=== PATIENT | female | born 1950 | race Caucasian/White ===

== ENCOUNTER 2017-10-15 08:57 | Inpatient (IN) | payer OTHER ==
[~2017-10-15] VITALS: Ht 154.9 cm; Wt 89.4 kg
[~2017-10-15 08:57] MED LIST: ASPI81EC19 PO; COZ50 PO; DOCU-246 PO; ENAL10TA21 PO; FENO54TA3 PO; GABA300C PO; GLU500 PO; HYDR12.516 PO; NITR100C7 PO; OMEP40EC1 PO
[2017-10-15 09:09] VITALS: BP 138/78
--- NOTE | 2017-10-15 09:13 | NUR ---
Patient ambulated to bed 2 with family. RN evaluating patient at bedside.
--- NOTE | 2017-10-15 09:25 | NUR ---
66 Y/O F BIB DAUGHTER W/ COMPLAINTS OF ABDOMINAL PAIN THAT STARTED AT 1 AM THIS MORNING. PT. STATES " IT STARTED HURTING A LOT THIS MORNING IT STARTS IN THE UPPER R PART OF MY ABDOMEN AND IT GOES TO MY BACK AND ALL OVER MY ABD". UPON PALPATION OF ABD THEIR WAS REBOUND TENDERNESS IN ALL QUADRANTS. PT. C/O OF VOMITING 4 TIMES SINCE PAIN STARTED BUT SAYS IT WAS LIKE SALIVA, AND C/O OF NAUSEA AT THIS TIME BUT DENIES DIAHRRHEA . PT. C/O 10/10 PAIN THAT RADIATES FROM UPPER R QUADRANT TO ALL OF ABD AND ALSO THE RIGHT SIDE OF BACK. PT. DENIES ANY FALLS. PT IS ALERT AND ORIENTED X 4. RR EVEN AND UNLABORED. LUNG SOUNDS CLEAR BILATERALLY. DR. AVITIA NOTIFIED. SAFETY PRECAUTIONS IMPLEMENTED. WILL CONTINUE TO MONITOR.
--- NOTE | 2017-10-15 09:45 | NUR ---
DR. AVITIA IN ROOM EVALUATING PT.
[2017-10-15] MEDS ORDERED: NACL 0.9% 1,000 ML IV SCH (09:49)
[2017-10-15] MEDS ORDERED: GLYCOPYRROLATE 0.2 MG/ML VIAL IV ONE (09:50)
[2017-10-15] MEDS ORDERED: ONDANSETRON 4 MG/2 ML VIAL IVP ONE (09:50)
[2017-10-15] MEDS ORDERED: FAMOTIDINE 20 MG/2 ML VIAL IVP ONE (09:50)
[2017-10-15] MEDS ORDERED: KETOROLAC 30 MG/ML VIAL IVP ONE (09:50)
[2017-10-15] MEDS ORDERED: MORPHINE SULFATE 2 MG/ML SYR IVP ONE (09:50)
[2017-10-15] MEDS ORDERED: MORPHINE SULFATE 4 MG/ML SYR ONE (10:12)
[2017-10-15 10:16] LABS: BASOPHILS # (AUTO) 0.1 K/uL (0.00-0.22); BASOPHILS % (AUTO) 0.6 % (0.0-2.0); EOSINOPHILS # (AUTO) 0.2 K/uL (0-0.4); EOSINOPHILS % (AUTO) 2.1 % (0.0-4.0); HEMATOCRIT 43.9 % (36-48); HEMOGLOBIN 14.8 g/dL (12.0-16.0); LYMPHOCYTES # (AUTO) 0.3 K/uL (2.5-16.5); LYMPHOCYTES % (AUTO) 3.9 % (20.5-51.1); MEAN CORPUSCULAR HEMOGLOBIN 30 pg (27-31); MEAN CORPUSCULAR HGB CONC 34 g/dL (33-37); MONOCYTES # (AUTO) 0.3 K/uL (0.8-1.0); NEUTROPHILS # (AUTO) 7.6 K/uL (1.8-7.7); NEUTROPHILS % (AUTO) 89.4 % (42.2-75.2); PLATELET COUNT (AUTO) 131 K/uL (140-450); RED BLOOD CELL COUNT(AUTO) 4.99 MIL/uL (4.20-5.40); RED CELL DISTRIBUTION WIDTH 14.3 % (11.6-13.7); WHITE BLOOD COUNT (AUTO) 8.6 K/uL (4.8-10.8)
[2017-10-15 10:21] LABS: APPEARANCE,URINE CLEAR (CLEAR); BILIRUBIN,URINE NEGATIVE (NEGATIVE); BLOOD, URINE TRACE-I (NEGATIVE); COLOR,URINE YELLOW (YELLOW); LEUKOCYTE ESTERASE ,URINE TRACE (NEGATIVE); NITRITE, URINE NEGATIVE (NEGATIVE); UGLUCOSE NEGATIVE (NEGATIVE)
[2017-10-15 10:23] LABS: ANION GAP 13.6 (8-16); CARBON DIOXIDE 24.5 mmol/L (21-32); CREATININE 0.8 mg/dL (0.6-1.3); POTASSIUM 4.1 mmol/L (3.5-5.1)
[2017-10-15 10:28] LABS: ALBUMIN 3.8 g/dL (3.4-5.0); TOTAL BILIRUBIN 0.5 mg/dL (0.0-1.0)
[2017-10-15 10:33] LABS: RBC,URINE 0-5 (RARE) /HPF (0-5)
--- NOTE | 2017-10-15 10:42 | NUR ---
PT. TAKEN TO CT , VIA GURNEY WITH CORRECTIONAL AGENCY DIRECTOR.
--- NOTE | 2017-10-15 10:52 | NUR ---
PT. BACK IN ROOM FROM [place]
[2017-10-15] MEDS: NACL 0.9% 1,000 ML IV SCH ×2 (12:08→21:59)
[2017-10-15] MEDS ORDERED: DOCUSATE SODIUM 100 MG GELCAP PO PRN (12:10)
[2017-10-15] MEDS ORDERED: ONDANSETRON 4 MG/2 ML VIAL IM/IVP PRN (12:10)
[2017-10-15] MEDS ORDERED: ACETAMINOPHEN 325 MG TAB PO PRN (12:10)
[2017-10-15] MEDS ORDERED: HYDROcodone/APAP 7.5/325 MG 1 TAB PO PRN (12:10)
--- NOTE | 2017-10-15 12:52 | NUR ---
Patient will be admitted to care of DR. GRUBBS. Admited to TELE FLOOR . Will go to room 106A. Belongings list completed. Report to YANN BRUNO .
[2017-10-15 13:00] VITALS: BP 153/84
--- NOTE | 2017-10-15 13:00 | NUR ---
RECEIVED PT ON UNIT VIA [employer]. PT IS AAOX4, AMBULATORY, HAS IV ON THE LEFT AC, PATENT, INTACT, FLUSHING WELL, NO S/S OF RESPIRATORY DISTRESS NOTED, SKIN IS INTACT, ORIENTED PT TO ROOM, DISCUSSED PLAN OF CARE WITH PT AND PT'S DAUGHTER, THEY BOTH VERBALIZED UNDERSTANDING, CALL LIGHT IS WITHIN REACH, WILL CONTINUE TO MONITOR.
[2017-10-15 13:16] LABS: CHOL/HDL RATIO 4.1 (1-4.5); MAGNESIUM 2.1 mg/dL (1.8-2.4); PHOSPHORUS 3.1 mg/dL (2.5-4.9); THYROID STIMULATING HORMONE 0.36 uIU/mL (0.34-3.74)
[2017-10-15] MEDS ORDERED: MORPHINE SULFATE 4 MG/ML SYR IVP PRN (13:45)
--- NOTE | 2017-10-15 13:45 | NUR ---
I LET DR. SEO PATIENT WAS COMPLAINING OF 8/10 PAIN LEVEL AND PT HAD JUST VOMITED. I LET DR. SEO KNOW I HAS JUST GIVEN THE PATIENT SOME ZOFRAN. I ASKED DR. SEO IF HE CAN ORDER PAIN MEDICATION IV FORM. PER DR. SEO HE WILL PUT IN AN ORDER FOR MORPHINE.
[2017-10-15] MEDS ORDERED: INSULIN LISPRO SLIDING SCALE 100 UNITS/ML VIAL SUBQ PRN (14:10)
[2017-10-15] MEDS ORDERED: DEXTROSE 50% 50 ML SYR IVP PRN (14:10)
--- NOTE | 2017-10-15 15:32 | NUR ---
PT IS SLEEPING IN BED AT THIS TIME, CALL LIGHT IS WITHIN REACH.
[2017-10-15] MEDS ORDERED: KETOROLAC 30 MG/ML VIAL IM PRN (15:45)
[2017-10-15 16:00] VITALS: BP 145/71
[2017-10-15] MEDS: BLOOD GLUCOSE MONITORING 1 DEV DEV FS SCH ×2 (16:50→21:27)
[2017-10-15] MEDS: GABAPENTIN 300 MG CAP PO SCH (16:53)
--- NOTE | 2017-10-15 18:20 | NUR ---
PATIENT'S DAUGHTER ASKED IF THE PATIENT WAS GOING TO BE HAVING SURGERY. I LET HER KNOW OF THIS MOMENT THERE WAS NO PLANS FOR SURGERY BUT SHE DID NEED TO REMAIN NPO. PT'S DAUGHTER VERBALIZED UNDERSTANDING.
--- NOTE | 2017-10-15 19:10 | NUR ---
ENDORSED PT TO SURGICAL SUPPLIES STERILIZER NURSE FOR CONTINUITY OF CARE. PT STABLE AT THIS TIME.
--- NOTE | 2017-10-15 19:11 | NUR ---
RECEIVED REPORT FROM DAY SHIFT NURSE. AAOX4. FAMILY AT BEDSIDE. NO C/O PAIN AT THIS TIME. IV TO LEFT AC #20G, NS AT AT 110ML/HR. DISCUSSED PLAN OF CARE, PT VERBALIZED UNDERSTANDING. SAFETY PRECAUTION IN PLACE. CALL LIGHT WITHIN REACH.
[2017-10-15 20:00] VITALS: BP 138/72
[2017-10-15] MEDS: metFORMIN 500 MG TAB PO SCH (21:13)
[2017-10-15] MEDS: DOCUSATE SODIUM 100 MG GELCAP PO SCH (21:13)
--- NOTE | 2017-10-15 21:15 | NUR ---
CLARIFIED DIET ORDER TO DR. GRANGER, NPO EXCEPT MEDS. DUE MEDS GIVEN. PT TOLERATED WELL.
--- NOTE | 2017-10-15 21:30 | NUR ---
BS CHECKED 116. NO INSULIN COVERAGE NEEDED. K PAD APPLIED TO LOWER BACK ORDERED FOR HERNIATED DISK.
[2017-10-16] VITALS: BP 119/56
--- NOTE | 2017-10-16 00:07 | NUR ---
PT IN LYING IN BED, AWAKE. NO C/O PAIN. NO RESP DISTRESS NOTED. CALL LIGHT WITHIN REACH.
--- NOTE | 2017-10-16 02:25 | NUR ---
PT SLEEPING BUT EASILY AROUSABLE. RESP EVEN AND UNLABORED. NO S/S OF PAIN OR DISCOMFORT. CALL LIGHT WITHIN REACH.
[2017-10-16 04:00] VITALS: BP 100/45
--- NOTE | 2017-10-16 04:30 | NUR ---
PT IN BED, AWAKE. NO C/O PAIN. NO RESP DISTRESS NOTED. V/S CHECKED BP 100/45. DR. GRANGER MADE AWARE, NO NEW ORDER.
--- NOTE | 2017-10-16 06:05 | NUR ---
BS CHECKED 84. NO C/O PAIN OR DISCOMFORT. CALL LIGHT WITHIN REACH.
[2017-10-16] MEDS: BLOOD GLUCOSE MONITORING 1 DEV DEV FS SCH ×4 (06:41→21:00)
[2017-10-16] MEDS: NACL 0.9% 1,000 ML IV SCH ×3 (07:05→22:21)
--- NOTE | 2017-10-16 07:05 | NUR ---
ENDORSED PT TO DAY SHIFT NURSE. PT IN STABLE CONDITION.
--- NOTE | 2017-10-16 07:10 | NUR ---
RECEIVED REPORT FROM DIESEL ENGINE MECHANIC APPRENTICE NURSE, PT IS SLEEPING IN BED BUT EASILY AWAKEN, PT IS AAOX4, AMBULATORY, HAS IV ON THE LEFT AC, PATENT, INTACT, FLUSHING WELL, NO S/S OF RESPIRATORY DISTRESS OR DISCOMFORT NOTED, SKIN IS INTACT, DISCUSSED PLAN OF CARE WITH PT, PT VERBALIZED UNDERSTANDING, PATIENT'S DAUGHTER IS AT BEDSIDE, CALL LIGHT IS WITHIN REACH, WILL CONTINUE TO MONITOR.
[2017-10-16 08:00] VITALS: BP 117/53
[2017-10-16 08:12] LABS: BASOPHILS % (AUTO) 0.4 % (0.0-2.0); EOSINOPHILS # (AUTO) 0.2 K/uL (0-0.4); EOSINOPHILS % (AUTO) 4.7 % (0.0-4.0); HEMATOCRIT 36.3 % (36-48); HEMOGLOBIN 12.1 g/dL (12.0-16.0); LYMPHOCYTES # (AUTO) 0.9 K/uL (2.5-16.5); LYMPHOCYTES % (AUTO) 26.5 % (20.5-51.1); MEAN CORPUSCULAR HEMOGLOBIN 29 pg (27-31); MEAN CORPUSCULAR HGB CONC 33 g/dL (33-37); MEAN CORPUSCULAR VOLUME 88.4 fL (80-94); MONOCYTES # (AUTO) 0.3 K/uL (0.8-1.0); MONOCYTES % (AUTO) 9.3 % (1.7-9.3); NEUTROPHILS # (AUTO) 2.1 K/uL (1.8-7.7); NEUTROPHILS % (AUTO) 59.1 % (42.2-75.2); PLATELET COUNT (AUTO) 117 K/uL (140-450); RED BLOOD CELL COUNT(AUTO) 4.11 MIL/uL (4.20-5.40); RED CELL DISTRIBUTION WIDTH 14.2 % (11.6-13.7); WHITE BLOOD COUNT (AUTO) 3.5 K/uL (4.8-10.8)
[2017-10-16] MEDS ORDERED: METHOCARBAMOL 500 MG TAB PO SCH (08:50)
[2017-10-16 08:55] LABS: ANION GAP 9.5 (8-16); CREATININE 0.7 mg/dL (0.6-1.3); POTASSIUM 3.5 mmol/L (3.5-5.1)
[2017-10-16] MEDS ORDERED: ENALAPRIL 10 MG TAB PO SCH (09:00)
[2017-10-16] MEDS ORDERED: HYDROCHLOROTHIAZIDE 12.5 MG PO SCH (09:00)
[2017-10-16] MEDS: metFORMIN 500 MG TAB PO SCH ×2 (09:00→20:23)
[2017-10-16] MEDS ORDERED: FENOFIBRATE 54 MG PO SCH (09:00)
[2017-10-16] MEDS ORDERED: NON-FORMULARY ITEM (Omeprazole* (Prilosec*) 40 MG) PO SCH (09:00)
[2017-10-16] MEDS ORDERED: METHOCARBAMOL 500 MG TAB PO PRN (09:05)
[2017-10-16] MEDS: ECOTRIN 81 MG TABEC PO SCH (09:33)
[2017-10-16] MEDS: DOCUSATE SODIUM 100 MG GELCAP PO SCH ×2 (09:34→20:23)
[2017-10-16] MEDS: LOSARTAN 50 MG TAB PO SCH (09:35)
[2017-10-16] MEDS: ATORVASTATIN 20 MG TAB PO SCH (09:36)
[2017-10-16] MEDS: GABAPENTIN 300 MG CAP PO SCH ×3 (09:37→17:35)
[2017-10-16] MEDS: PANTOPRAZOLE 40 MG TABEC PO SCH (09:38)
[2017-10-16] MEDS: FENOFIBRATE 48 MG TAB PO SCH (09:41)
[2017-10-16] MEDS: HYDROCHLOROTHIAZIDE 25 MG TAB PO SCH (09:42)
--- NOTE | 2017-10-16 09:50 | NUR ---
PT OFF UNIT TO HAVE X-RAY STUDY DONE. PT LEFT IN STABLE CONDITION.
--- NOTE | 2017-10-16 10:03 | NUR ---
PATIENT HAS BEEN SCREENED AND CATEGORIZED MODERATE NUTRITION RISK. PATIENT WILL BE SEEN WITHIN 3-5 DAYS OF ADMISSION. 10/18/17 - 10/20/17 TAPAN SMITH MBA, RD
--- NOTE | 2017-10-16 10:10 | NUR ---
PT RETURNED TO UNIT. PT STABLE, NO S/S OF RESPIRATORY DISTRESS OR DISCOMFORT NOTED. CALL LIGHT WITHIN REACH.
--- NOTE | 2017-10-16 11:45 | NUR ---
PT RESTING IN BED, CALL LIGHT WITHIN REACH, PATIENT DAUGHTER IS AT BEDSIDE.
[2017-10-16 12:00] VITALS: BP 130/66
[2017-10-16] MEDS ORDERED: CALCIUM CARBONATE 500 MG TAB PO SCH (13:45)
--- NOTE | 2017-10-16 14:00 | NUR ---
PT SLEEPING IN BED AT THIS TIME, CALL LIGHT WITHIN REACH.
[2017-10-16 16:00] VITALS: BP 102/60
--- NOTE | 2017-10-16 17:35 | NUR ---
PT RESTING IN BED WATCHING TV, PATIENT'S DAUGHTER IS AT BEDSIDE, CALL LIGHT WITHIN REACH.
--- NOTE | 2017-10-16 19:20 | NUR ---
ENDORSED PT TO FELLER OPERATOR NURSE FOR CONTINUITY OF CARE. PT STABLE AT THIS TIME.
--- NOTE | 2017-10-16 19:22 | NUR ---
RECEIVED FROM AM RN IN BED SITTING UP WITH FAMILY MEMBERS VISITING. CALL LIGHT WITH IN REACH. DENIES PAIN AT THIS TIME. CARE PLANS AND CALL LIGHT USE FOR HELP EXPLAINED. TELEMETRY MONITORING.
[2017-10-16 20:18] VITALS: BP 149/65
[2017-10-16] MEDS: KETOROLAC 30 MG/ML VIAL IVP PRN (20:23)
[2017-10-17 00:42] VITALS: BP 131/55
--- NOTE | 2017-10-17 00:53 | NUR ---
PT. WITH 1 WATCHER/DAUGHTER AT BEDSIDE TO STAY OVERNIGHT. NO COMPLAINTS DONE . TELEMETRY MONITORING. NO SOB. PT. SLEEPING WELL.
[2017-10-17 03:13] VITALS: BP 135/67
[2017-10-17] MEDS: KETOROLAC 30 MG/ML VIAL IVP PRN (03:18)
--- NOTE | 2017-10-17 03:53 | NUR ---
PT. WOKE UP AND WENT RESTROOM TO URINATE. DAUGHTER ASSISTED PT. COMPLAINED OF ABDOMINAL PAIN AND MEDICATED REQUESTED FOR PAIN RELIEVER/TORADOL IVP.
[2017-10-17] MEDS: BLOOD GLUCOSE MONITORING 1 DEV DEV FS SCH ×2 (05:30→12:04)
--- NOTE | 2017-10-17 05:54 | NUR ---
PT. AM PERSONAL HYGIENE RENDERED BY CNAS. NO COMPLAINTS DONE. ON TELEMETRY MONITORING. NO SOB OR PAIN COMPLAINTS DONE THIS SHIFT. ABLE TO VERBALIZE NEEDS WELL.
--- NOTE | 2017-10-17 07:40 | NUR ---
PATIENT IS AWAKE, ALERT. RESPIRATION EVEN, UNLABOR ON ROOM AIR. SKIN DRY AND WARM. IV PATENT AND INTACT. DENIED ABDOMINAL PAIN, N/V AT THIS TIME. NO DISTRESS NOTED. VS IS STABLE. FAMILY AT BEDSIDE. PLAN OF CARE WAS DISCUSSED WITH PATIENT AND FAMILY. BED AT LOW POSITION, SIDE RAILS UP. CALL LIGHT WITHIN REACH.
[2017-10-17 08:00] VITALS: BP 130/58
[2017-10-17] MEDS: ATORVASTATIN 20 MG TAB PO SCH (08:56)
[2017-10-17] MEDS: PANTOPRAZOLE 40 MG TABEC PO SCH (08:57)
[2017-10-17] MEDS: GABAPENTIN 300 MG CAP PO SCH ×2 (08:57→12:42)
[2017-10-17] MEDS: FENOFIBRATE 48 MG TAB PO SCH (08:57)
[2017-10-17] MEDS: ECOTRIN 81 MG TABEC PO SCH (08:57)
[2017-10-17] MEDS: HYDROCHLOROTHIAZIDE 25 MG TAB PO SCH (08:57)
[2017-10-17] MEDS: metFORMIN 500 MG TAB PO SCH (08:57)
[2017-10-17] MEDS: DOCUSATE SODIUM 100 MG GELCAP PO SCH (08:58)
[2017-10-17] MEDS: LOSARTAN 50 MG TAB PO SCH (08:58)
[2017-10-17] MEDS ORDERED: CALCIUM CARBONATE 500 MG TAB PO SCH (09:00)
--- NOTE | 2017-10-17 10:30 | NUR ---
PATIENT AMBULATED AROUND THE HALLWAY, ACCOMPANIED BY FAMILY. NO DISTRESS NOTED AT THIS TIME, STEADY GAIT
[2017-10-17] MEDS ORDERED: ONDA4TAB PO (11:49)
[2017-10-17 12:00] VITALS: BP 138/63
[2017-10-17] MEDS ORDERED: SODIUM PHOSPHATE 118 ML ENEM RC SCH (12:00)
--- NOTE | 2017-10-17 12:00 | NUR ---
PATIENT WAS UPDATED WITH NEW ORDERS. PATIENT STATED SHE WOULD LIKE TO EAT LUNCH FIRST AND TRIED TO GO BATHROOM AGAIN FOR BM BEFORE TRYING THE ENEMA. VS IS STABLE. WILL CONTINUE TO FOLLOW UP
--- NOTE | 2017-10-17 12:50 | NUR ---
ENEMA WAS GIVEN PER ORDER. PATIENT TOLERATED WELL. INSTRUCTED PATIENT TO CALL RN ONCE SHE HAS ANY BM
--- NOTE | 2017-10-17 14:06 | NUR ---
PATIENT HAD 2 LARGE BMS PER IT SOFTWARE DEVELOPER. OK TO DISCHARGE PER ORDER.
--- NOTE | 2017-10-17 14:34 | NUR ---
DISCHARGE INSTRUCTION WAS GIVEN AND EXPLAINED TO THE PATIENT AND FAMILY. PATIENT VERBALIZED UNDERSTANDING. IV WAS REMOVED, CATHETER INTACT, NO ACTIVE BLEEDING SEEN, PATIENT TOLERATED WELL. DENIED ABDOMINAL PAIN, N/V AT THIS TIME. ID BAND AND LABORATORY IMMUNOLOGIST WERE REMOVED. ALL BELONGINGS WERE TAKEN WITH PATIENT AND FAMILY. Addendum: 10/17/17 at 1443 by Shelia Cabrera RN PATIENT WAS ESCORTED OUT BY STAFF, MEHNAZ LOMELI
== END 2017-10-17 14:40 | disposition home or self-care (01) | DRG 444 ==
LOC: MED 08:57 → MTU 12:12
PROVIDERS: ADMIT Family Medicine; ATTEND Family Medicine
DX: K80.51 Calculus of bile duct without cholangitis or cholecystitis with obstruction (principal); N17.0 Acute kidney failure with tubular necrosis; K56.7 Ileus, unspecified; N39.0 Urinary tract infection, site not specified; K57.30 Diverticulosis of large intestine without perforation or abscess without bleeding; I10 Essential (primary) hypertension; E78.5 Hyperlipidemia, unspecified; E66.9 Obesity, unspecified; E86.0 Dehydration; M50.90 Cervical disc disorder, unspecified, unspecified cervical region; M51.26 Other intervertebral disc displacement, lumbar region; E11.65 Type 2 diabetes mellitus with hyperglycemia; E11.51 Type 2 diabetes mellitus with diabetic peripheral angiopathy without gangrene; Z68.37 Body mass index [BMI] 37.0-37.9, adult; Z88.2 Allergy status to sulfonamides; Z79.84 Long term (current) use of oral hypoglycemic drugs; Z79.82 Long term (current) use of aspirin; Z79.899 Other long term (current) drug therapy; Z90.710 Acquired absence of both cervix and uterus; Z98.891 History of uterine scar from previous surgery
CPT/HCPCS: 36415; 74018; 76705; 80048; 80053; 81001; 82150; 82948; 83036; 83690; 83735; 84100; 84436; 84439; 84443; 84479; 85025; 87081; 87086; 93925; 93970; 96361; 96374; 96375; 99285; J1815; J1885; J2270; J2405; J3490; J7030; Q0092

== ENCOUNTER 2018-03-11 12:40 | Emergency (ER) | payer OTHER ==
[~2018-03-11] VITALS: Ht 154.9 cm; Wt 90.7 kg
[~2018-03-11 12:40] MED LIST changes: +ONDA4TAB PO
[2018-03-11 13:00] VITALS: BP 135/72
[2018-03-11] MEDS ORDERED: NACL 0.9% 1,000 ML IV ONE (13:08)
[2018-03-11] MEDS ORDERED: PROMETHAZINE 25 MG/ML VIAL IM ONE (13:10)
[2018-03-11] MEDS ORDERED: IPRATROPIUM 0.02% 0.5 MG/2.5 ML NEBU INH ONE (13:10)
[2018-03-11] MEDS ORDERED: ALBUTEROL 0.083% 2.5 MG/3 ML NEBU INH ONE (13:10)
[2018-03-11] MEDS ORDERED: methylPREDNISolone SS 125 MG/2 ML VIAL IVP ONE (13:10)
[2018-03-11] MEDS ORDERED: ONDANSETRON 4 MG/2 ML VIAL IVP ONE (13:10)
[2018-03-11] MEDS ORDERED: diphenhydrAMINE 50 MG/ML VIAL IVP ONE (13:10)
[2018-03-11] MEDS ORDERED: FAMOTIDINE 20 MG/2 ML VIAL IVP ONE (13:10)
[2018-03-11] MEDS ORDERED: MIRA25TE PO (13:16)
[2018-03-11] MEDS ORDERED: ATOR10TA PO (13:16)
[2018-03-11] MEDS ORDERED: VITD1000 PO (13:16)
[2018-03-11] MEDS ORDERED: GLIP5TAB13 PO (13:16)
[2018-03-11] MEDS ORDERED: LINA145C PO (13:16)
[2018-03-11] MEDS ORDERED: ORE25 PO (13:17)
[2018-03-11 13:36] LABS: BASOPHILS # (AUTO) 0.1 K/uL (0.00-0.22); EOSINOPHILS # (AUTO) 0.1 K/uL (0-0.4); EOSINOPHILS % (AUTO) 1.6 % (0.0-4.0); LYMPHOCYTES # (AUTO) 1.3 K/uL (2.5-16.5); MEAN CORPUSCULAR HEMOGLOBIN 30 pg (27-31); MEAN CORPUSCULAR HGB CONC 34 g/dL (33-37); MEAN CORPUSCULAR VOLUME 86.8 fL (80-94); MONOCYTES # (AUTO) 0.3 K/uL (0.8-1.0); MONOCYTES % (AUTO) 5.3 % (1.7-9.3); NEUTROPHILS # (AUTO) 4.2 K/uL (1.8-7.7); NEUTROPHILS % (AUTO) 70.1 % (42.2-75.2); PLATELET COUNT (AUTO) 144 K/uL (140-450); RED BLOOD CELL COUNT(AUTO) 4.72 MIL/uL (4.20-5.40)
[2018-03-11 13:43] LABS: APPEARANCE,URINE CLEAR (CLEAR); BILIRUBIN,URINE NEGATIVE (NEGATIVE); BLOOD, URINE NEGATIVE (NEGATIVE); COLOR,URINE YELLOW (YELLOW); LEUKOCYTE ESTERASE ,URINE NEGATIVE (NEGATIVE); NITRITE, URINE NEGATIVE (NEGATIVE); PH,URINE 6.5 (5.0-9.0); UGLUCOSE NEGATIVE (NEGATIVE)
[2018-03-11 14:00] LABS: ANION GAP 11.4 (8-16); CARBON DIOXIDE 27.1 mmol/L (21-32); CREATININE 0.9 mg/dL (0.6-1.3); POTASSIUM 3.5 mmol/L (3.5-5.1)
[2018-03-11 14:04] LABS: PROTHROMBIN TIME 10.1 secs (10.8-13.4)
[2018-03-11 14:07] LABS: ALBUMIN 3.9 g/dL (3.4-5.0); TOTAL BILIRUBIN 0.6 mg/dL (0.0-1.0)
[2018-03-11] MEDS ORDERED: HYDROcodone/APAP 7.5/325 MG 1 TAB PO PRN (14:30)
[2018-03-11] MEDS ORDERED: NACL 0.9% 1,000 ML IV SCH (14:30)
[2018-03-11] MEDS ORDERED: ACETAMINOPHEN 325 MG TAB PO PRN (14:30)
[2018-03-11] MEDS ORDERED: ONDANSETRON 4 MG/2 ML VIAL IM/IVP PRN (14:30)
[2018-03-11] MEDS ORDERED: DOCUSATE SODIUM 100 MG GELCAP PO PRN (14:30)
[2018-03-11 15:03] LABS: BARBITURATE, URINE NEG. ng/ml (NEG <=200); BENZODIAZEPINE, URINE NEG. ng/mL (NEG <=200); CANNABINOID, URINE NEG. ng/mL (NEG <=50); COCAINE, URINE NEG. ng/mL (NEG <=300); OPIATE, URINE NEG. ng/mL (NEG <=2000); PHENCYCLIDINE SCREEN,URINE NEG. ng/mL (NEG <=25)
[2018-03-11 15:10] VITALS: BP 158/73
[2018-03-11 15:13] LABS: CHOL/HDL RATIO 3.9 (1-4.5); FREE T4 (FREE THYROXINE) 1.13 ng/dL (0.76-1.46); PHOSPHORUS 2.9 mg/dL (2.5-4.9); THYROID STIMULATING HORMONE 0.66 uIU/mL (0.34-3.74)
[2018-03-12 08:09] LABS: T4 (THYROXINE) 7.2 ug/dL (4.5-12.0)
== END 2018-03-11 15:09 | disposition left against medical advice (07) ==
LOC: MED 12:40
DX: T36.8X5A Adverse effect of other systemic antibiotics, initial encounter (principal); E11.9 Type 2 diabetes mellitus without complications; I10 Essential (primary) hypertension; Z88.1 Allergy status to other antibiotic agents; Z88.3 Allergy status to other anti-infective agents; Z88.2 Allergy status to sulfonamides; Z79.82 Long term (current) use of aspirin; Z79.899 Other long term (current) drug therapy; Y92.89 Other specified places as the place of occurrence of the external cause
CPT/HCPCS: 36415; 71045; 80053; 80061; 80305; 81003; 81025; 82150; 83036; 83690; 83735; 83880; 84100; 84436; 84439; 84443; 84479; 84484; 85025; 85610; 85730; 93005; 94640; 96374; 96375; 99285; J1200; J2405; J2550; J2930; J3490; J7030; J7613; J7644

== ENCOUNTER 2019-09-02 13:47 | Emergency (ER) | payer OTHER ==
[~2019-09-02] VITALS: Ht 154.9 cm; Wt 92.5 kg
[~2019-09-02 13:47] MED LIST changes: +ATOR10TA PO; -COZ50 PO; -DOCU-246 PO; -ENAL10TA21 PO; -FENO54TA3 PO; +GLIP5TAB13 PO; -GLU500 PO; -HYDR12.516 PO; +LINA145C PO; +LOSA50TA57 PO; +MIRA25TE PO; -NITR100C7 PO; -OMEP40EC1 PO; +ORE25 PO; +VITD1000 PO
[2019-09-02 13:48] VITALS: BP 181/93
[2019-09-02] MEDS ORDERED: KETOROLAC 60 MG/2 ML VIAL IM ONE (14:10)
[2019-09-02] MEDS ORDERED: MORPHINE SULFATE 4 MG/ML SYR IM ONE ×2 (14:10→15:50)
[2019-09-02 16:04] LABS: APPEARANCE,URINE CLEAR (CLEAR); BILIRUBIN,URINE NEGATIVE (NEGATIVE); BLOOD, URINE NEGATIVE (NEGATIVE); COLOR,URINE YELLOW (YELLOW); LEUKOCYTE ESTERASE ,URINE TRACE (NEGATIVE); NITRITE, URINE NEGATIVE (NEGATIVE); PH,URINE 6.5 (5.0-9.0); UGLUCOSE NEGATIVE (NEGATIVE)
[2019-09-02 16:49] VITALS: BP 120/63
[2019-09-02 16:52] LABS: RBC,URINE NONE SEEN /HPF (0-5); WBC,URINE 0-5 /HPF (0-5)
== END 2019-09-02 17:10 | disposition home or self-care (01) ==
LOC: MED 13:47
DX: M54.42 Lumbago with sciatica, left side (principal); M54.16 Radiculopathy, lumbar region; E11.9 Type 2 diabetes mellitus without complications; I10 Essential (primary) hypertension; Z88.1 Allergy status to other antibiotic agents; Z88.2 Allergy status to sulfonamides; Z90.710 Acquired absence of both cervix and uterus; Z79.899 Other long term (current) drug therapy
CPT/HCPCS: 81001; 96372; 99284; J1885; J2270

== ENCOUNTER 2020-12-22 19:59 | Emergency (ER) | payer OTHER ==
[~2020-12-22] VITALS: Ht 154.9 cm; Wt 92.5 kg
[~2020-12-22 19:59] MED LIST changes: +HYDR-4004 PO; -ORE25 PO
[2020-12-22 20:24] VITALS: BP 161/97
--- NOTE | 2020-12-22 20:29 | NUR ---
AMBULATED TO BED 12 WITH GUARDED GAIT
--- NOTE | 2020-12-22 20:30 | NUR ---
PT. IS A 70 Y/O FEMALE THAT CAME INTO ED WITH C/O OF BILATERAL LEG PAIN. PT. STATES THAT "IT HURTS MORE ON MY LEFT LEG AND FEELS LIKE BURNING." PT. ALSO STATES THAT IT STARTED ON TUESDAY AND PROGRESSED. FULL RANGE OF MOTION NOTED ON BILATERAL LOWER EXTREMITIES NOTED. PT. RATES HER PAIN AT A 8/10 ON THE PAIN SCALE. SKIN IS PINK/WARM/DRY; AAOX4 WITH EVEN AND STEADY GAIT;HR EVEN AND REGULAR; PT DENIES ANY FEVER, CP, SOB, OR COUGH AT THIS TIME; VSS; PATIENT POSITIONED FOR COMFORT; HOB ELEVATED; BEDRAILS UP X2; BED DOWN. ER MD MADE AWARE OF PT STATUS. PMH: HTN, DM 2 ALLERGIES: MACROBID, CIPRO, AND SULFA
--- NOTE | 2020-12-22 21:15 | NUR ---
FRANCISCO SOUSA AT BEDSIDE FOR EXAMINATION
--- NOTE | 2020-12-22 21:27 | NUR ---
PT. TAKEN TO RAD VIA W/C.
--- NOTE | 2020-12-22 21:37 | NUR ---
PT RETURN FROM RAD
--- NOTE | 2020-12-22 21:50 | NUR ---
ULTRASOUND AT BEDSIDE
--- NOTE | 2020-12-22 22:40 | NUR ---
PT. IS LAYING IN BED COMFORTABLY WITH DAUGHTER AT BEDSIDE. VOICES NO COMPLAINTS
[2020-12-22] MEDS ORDERED: LID5T TP (23:40)
[2020-12-22 23:51] VITALS: BP 142/63
--- NOTE | 2020-12-22 23:51 | NUR ---
Patient discharged with v/s stable. Written and verbal after care instructions given and explained. Patient alert, oriented and verbalized understanding of instructions. Ambulatory with steady gait. All questions addressed prior to discharge. ID band removed. Patient advised to follow up with PMD. Rx of LIDODERM 5% PATCH given. Patient educated on indication of medication including possible reaction and side effects. Opportunity to ask questions provided and answered.
== END 2020-12-22 23:51 | disposition home or self-care (01) ==
LOC: MED 19:59
DX: M54.42 Lumbago with sciatica, left side (principal); G89.29 Other chronic pain; E11.9 Type 2 diabetes mellitus without complications; I10 Essential (primary) hypertension; Z79.899 Other long term (current) drug therapy; Z79.82 Long term (current) use of aspirin; Z79.84 Long term (current) use of oral hypoglycemic drugs; Z88.1 Allergy status to other antibiotic agents; Z88.2 Allergy status to sulfonamides; Z88.8 Allergy status to other drugs, medicaments and biological substances
CPT/HCPCS: 72100; 93971; 99284

== ENCOUNTER 2023-02-28 15:07 | Emergency (ER) | payer OTHER ==
[~2023-02-28] VITALS: Ht 154.9 cm; Wt 95.3 kg
[~2023-02-28 15:07] MED LIST changes: +CHOL100084 PO; +LID5T TP; -VITD1000 PO
[2023-02-28 15:27] VITALS: BP 154/84; PULSE 69; RESP 18; TEMP 97.7; O2SAT 97
[2023-02-28] MEDS ORDERED: NACL 0.9% 1,000 ML IV ONE (16:15)
[2023-02-28] MEDS ORDERED: LIDOCAINE 5% 1 EA PATCH TP SCH (16:15)
[2023-02-28] MEDS ORDERED: ONDANSETRON 4 MG/2 ML VIAL IVP ONE (16:15)
[2023-02-28] MEDS ORDERED: MORPHINE SULFATE 2 MG/ML SYR IVP ONE (16:15)
[2023-02-28 16:25] LABS: BASOPHILS % (AUTO) 0.8 % (0.0-2.0); EOSINOPHILS # (AUTO) 0.2 K/uL (0-0.4); EOSINOPHILS % (AUTO) 4.5 % (0.0-4.0); HEMATOCRIT 42.5 % (36-48); HEMOGLOBIN 14.5 g/dL (12.0-16.0); LYMPHOCYTES % (AUTO) 25.6 % (20.5-51.1); MEAN CORPUSCULAR HEMOGLOBIN 29 pg (27-31); MEAN CORPUSCULAR HGB CONC 34 g/dL (33-37); MEAN CORPUSCULAR VOLUME 85.7 fL (80-94); MONOCYTES # (AUTO) 0.4 K/uL (0.8-1.0); NEUTROPHILS # (AUTO) 2.4 K/uL (1.8-7.7); NEUTROPHILS % (AUTO) 59.1 % (42.2-75.2); PLATELET COUNT (AUTO) 143 K/uL (140-450); RED BLOOD CELL COUNT(AUTO) 4.96 MIL/uL (4.20-5.40); RED CELL DISTRIBUTION WIDTH 14.5 % (11.6-13.7); WHITE BLOOD COUNT (AUTO) 4.1 K/uL (4.8-10.8)
[2023-02-28 16:49] LABS: ALANINE AMINOTRANSFERASE 29 U/L (12-78); ALBUMIN 3.7 g/dL (3.4-5.0); ALKALINE PHOSPHATASE 65 U/L (50-136); ANION GAP 15.6 (8-16); ASPARTATE AMINOTRANSFERASE 36 U/L (15-37); CARBON DIOXIDE 23.5 mmol/L (21-32); CHLORIDE 102 mmol/L (98-107); CREATININE 0.9 mg/dL (0.6-1.3); GLUCOSE 120 mg/dL (74-106); POTASSIUM 4.1 mmol/L (3.5-5.1); SODIUM SERUM 137 mmol/L (136-145); TOTAL BILIRUBIN 0.4 mg/dL (0.0-1.0); TOTAL PROTEIN, SERUM 7.4 g/dL (6.4-8.2); UREA NITROGEN, BLOOD 7 mg/dL (7-18)
[2023-02-28 17:17] VITALS: BP 183/69; PULSE 65; RESP 12
[2023-02-28 17:17] LABS: LIPASE 110 U/L (73-393)
[2023-02-28 18:14] VITALS: O2SAT 98
[2023-02-28 18:45] LABS: APPEARANCE,URINE CLEAR (CLEAR); BILIRUBIN,URINE NEGATIVE (NEGATIVE); BLOOD, URINE TRACE-I (NEGATIVE); COLOR,URINE YELLOW (YELLOW); LEUKOCYTE ESTERASE ,URINE NEGATIVE (NEGATIVE); NITRITE, URINE NEGATIVE (NEGATIVE); PROTEIN,URINE NEGATIVE (NEGATIVE); UGLUCOSE NEGATIVE (NEGATIVE); UROBILINOGEN,URINE 0.2 EU/dL (0.2 - 1)
[2023-02-28 18:57] LABS: BACTERIA,URINE FEW /HPF (None Seen); RBC,URINE 0-5 /HPF (0-5); SQUAMOUS EPITHELIAL CELL,UR 0-3 (FEW) /LPF (0-3 (FEW)); WBC,URINE 0-5 /HPF (0-5)
[2023-02-28] MEDS ORDERED: ACET-5636 PO ×2 (18:58→20:33)
[2023-02-28] MEDS ORDERED: NAPR-1704 PO ×2 (18:58→20:33)
[2023-02-28] MEDS ORDERED: EMLAC TP ×2 (19:00→20:33)
[2023-02-28] MEDS ORDERED: METH-1681 PO ×2 (19:02→20:33)
[2023-02-28] MEDS ORDERED: GUAI118L81 PO ×2 (19:02→20:33)
== END 2023-02-28 19:15 | disposition home or self-care (01) ==
LOC: MED 15:07
DX: S39.012A Strain of muscle, fascia and tendon of lower back, initial encounter (principal); E11.9 Type 2 diabetes mellitus without complications; I10 Essential (primary) hypertension; Z88.2 Allergy status to sulfonamides; Z88.8 Allergy status to other drugs, medicaments and biological substances; Z79.4 Long term (current) use of insulin; Z79.899 Other long term (current) drug therapy; X58.XXXA Exposure to other specified factors, initial encounter; Y93.89 Activity, other specified; Y92.89 Other specified places as the place of occurrence of the external cause; Y99.8 Other external cause status
CPT/HCPCS: 36415; 71045; 80053; 81001; 83690; 84484; 85025; 87086; 93005; 96361; 96374; 96375; 99285; J2270; J2405; J7030

== ENCOUNTER 2023-03-05 08:43 | Emergency (ER) | payer OTHER ==
[~2023-03-05] VITALS: Ht 154.9 cm; Wt 95.3 kg
[~2023-03-05 08:43] MED LIST changes: +ACET-5636 PO; +EMLAC TP; +GUAI118L81 PO; +METH-1681 PO; +NAPR-1704 PO
[2023-03-05 08:52] VITALS: BP 150/88; PULSE 67; RESP 15; TEMP 97.5; O2SAT 97
[2023-03-05 09:00] VITALS: O2SAT 97
[2023-03-05] MEDS ORDERED: MORPHINE SULFATE 4 MG/ML SYR IVP ONE (09:45)
[2023-03-05] MEDS ORDERED: ONDANSETRON 4 MG/2 ML VIAL IVP ONE (09:45)
[2023-03-05 10:59] LABS: BASOPHILS % (AUTO) 0.6 % (0.0-2.0); EOSINOPHILS # (AUTO) 0.3 K/uL (0-0.4); EOSINOPHILS % (AUTO) 4.9 % (0.0-4.0); HEMATOCRIT 40.2 % (36-48); HEMOGLOBIN 13.5 g/dL (12.0-16.0); LYMPHOCYTES # (AUTO) 1.3 K/uL (2.5-16.5); LYMPHOCYTES % (AUTO) 24.4 % (20.5-51.1); MEAN CORPUSCULAR HEMOGLOBIN 29 pg (27-31); MEAN CORPUSCULAR HGB CONC 34 g/dL (33-37); MEAN CORPUSCULAR VOLUME 86.2 fL (80-94); MONOCYTES # (AUTO) 0.5 K/uL (0.8-1.0); MONOCYTES % (AUTO) 8.8 % (1.7-9.3); NEUTROPHILS # (AUTO) 3.2 K/uL (1.8-7.7); NEUTROPHILS % (AUTO) 61.3 % (42.2-75.2); PLATELET COUNT (AUTO) 155 K/uL (140-450); RED BLOOD CELL COUNT(AUTO) 4.67 MIL/uL (4.20-5.40); RED CELL DISTRIBUTION WIDTH 14.6 % (11.6-13.7); WHITE BLOOD COUNT (AUTO) 5.3 K/uL (4.8-10.8)
[2023-03-05 11:17] LABS: ALANINE AMINOTRANSFERASE 45 U/L (12-78); ALBUMIN 3.8 g/dL (3.4-5.0); ALKALINE PHOSPHATASE 77 U/L (50-136); ANION GAP 11.3 (8-16); ASPARTATE AMINOTRANSFERASE 35 U/L (15-37); CALCIUM 9.1 mg/dL (8.5-10.1); CARBON DIOXIDE 25.5 mmol/L (21-32); CHLORIDE 105 mmol/L (98-107); CREATININE 0.8 mg/dL (0.6-1.3); GLUCOSE 135 mg/dL (74-106); POTASSIUM 4.8 mmol/L (3.5-5.1); SODIUM SERUM 137 mmol/L (136-145); TOTAL BILIRUBIN 0.6 mg/dL (0.0-1.0); TOTAL PROTEIN, SERUM 7.3 g/dL (6.4-8.2); UREA NITROGEN, BLOOD 10 mg/dL (7-18)
[2023-03-05] MEDS ORDERED: EMLAC TP ×2 (13:40→16:55)
[2023-03-05] MEDS ORDERED: HYDR-5191 PO (13:40)
[2023-03-05 13:46] LABS: INR 1.07 (0.8-1.2); PARTIAL THROMBOPLASTIN TIME 27.2 secs (22-35.6); PROTHROMBIN TIME 11.2 secs (10.8-13.4)
[2023-03-05 14:04] VITALS: BP 146/61; PULSE 63; RESP 10; TEMP 97.4; O2SAT 96
== END 2023-03-05 14:04 | disposition home or self-care (01) ==
LOC: MED 08:43
DX: S29.019A Strain of muscle and tendon of unspecified wall of thorax, initial encounter (principal); I10 Essential (primary) hypertension; E11.9 Type 2 diabetes mellitus without complications; Z88.2 Allergy status to sulfonamides; Z79.4 Long term (current) use of insulin; Z79.899 Other long term (current) drug therapy; Z88.8 Allergy status to other drugs, medicaments and biological substances; X58.XXXA Exposure to other specified factors, initial encounter; Y93.89 Activity, other specified; Y92.89 Other specified places as the place of occurrence of the external cause; Y99.8 Other external cause status
CPT/HCPCS: 36415; 71045; 71275; 80053; 81002; 83880; 84484; 85025; 85610; 85730; 93005; 96374; 96375; 99285; J2270; J2405; Q9967

== ENCOUNTER 2023-03-25 19:09 | Emergency (ER) | payer OTHER ==
[~2023-03-25] VITALS: Ht 154.9 cm; Wt 95.3 kg
[~2023-03-25 19:09] MED LIST changes: +HYDR-5191 PO
[2023-03-25 19:30] VITALS: BP 162/76; PULSE 68; RESP 17; TEMP 98; O2SAT 97
[2023-03-25] MEDS ORDERED: KETOROLAC 30 MG/ML VIAL IM ONE (22:45)
[2023-03-26] MEDS ORDERED: IBUP-2213 PO (00:43)
[2023-03-26] MEDS ORDERED: ACET-10509 PO (00:43)
[2023-03-26] MEDS ORDERED: LID5T TP (00:43)
[2023-03-26] MEDS ORDERED: MORPHINE SULFATE 4 MG/ML SYR IM ONE (00:45)
== END 2023-03-26 02:12 | disposition home or self-care (01) ==
LOC: MED 19:09
DX: M17.11 Unilateral primary osteoarthritis, right knee (principal); I10 Essential (primary) hypertension; E11.9 Type 2 diabetes mellitus without complications; Z79.899 Other long term (current) drug therapy; Z79.84 Long term (current) use of oral hypoglycemic drugs; Z88.1 Allergy status to other antibiotic agents; Z88.2 Allergy status to sulfonamides; Z88.8 Allergy status to other drugs, medicaments and biological substances
CPT/HCPCS: 73562; 93971; 96372; 99285; J1885; J2270; Q0092

== ENCOUNTER 2023-08-15 08:21 | Emergency (ER) | payer OTHER ==
[~2023-08-15] VITALS: Ht 154.9 cm; Wt 95.3 kg
[~2023-08-15 08:21] MED LIST changes: +ACET-10509 PO; -GLIP5TAB13 PO; +GLIP5TAB22 PO; +IBUP-2213 PO
[2023-08-15 08:22] VITALS: BP 165/86; PULSE 66; RESP 18; TEMP 97.9; O2SAT 97
[2023-08-15 08:30] VITALS: O2SAT 99
[2023-08-15] MEDS: KETOROLAC 30 MG/ML VIAL IM ONE (08:54)
[2023-08-15] MEDS ORDERED: NAPR-54 PO (09:38)
[2023-08-15 09:46] VITALS: BP 165/86; PULSE 66; RESP 18; TEMP 97.9; O2SAT 97
== END 2023-08-15 09:47 | disposition home or self-care (01) ==
LOC: MED 08:21
DX: S90.111A Contusion of right great toe without damage to nail, initial encounter (principal); E11.9 Type 2 diabetes mellitus without complications; I10 Essential (primary) hypertension; Z88.8 Allergy status to other drugs, medicaments and biological substances; Z79.4 Long term (current) use of insulin; Z79.899 Other long term (current) drug therapy; Z88.2 Allergy status to sulfonamides; W18.30XA Fall on same level, unspecified, initial encounter; Y93.89 Activity, other specified; Y92.89 Other specified places as the place of occurrence of the external cause; Y99.8 Other external cause status
CPT/HCPCS: 73660; 96372; 99283; J1885

== ENCOUNTER 2023-10-09 14:19 | Emergency (ER) | payer OTHER ==
[~2023-10-09] VITALS: Ht 154.9 cm; Wt 95.3 kg
[~2023-10-09 14:19] MED LIST changes: +NAPR-54 PO
[2023-10-09 14:33] VITALS: BP 162/81; PULSE 65; RESP 18; TEMP 98.3; O2SAT 98
[2023-10-09] MEDS: KETOROLAC 60 MG/2 ML VIAL IM ONE (15:11)
[2023-10-09] MEDS ORDERED: ACET-503 PO (15:33)
[2023-10-09] MEDS ORDERED: CEPH-588 PO (15:33)
[2023-10-09 15:45] VITALS: BP 144/72; PULSE 66; RESP 16; TEMP 98; O2SAT 99
== END 2023-10-09 15:45 | disposition home or self-care (01) ==
LOC: MED 14:19
DX: L03.031 Cellulitis of right toe (principal); E11.9 Type 2 diabetes mellitus without complications; I10 Essential (primary) hypertension; Z98.890 Other specified postprocedural states; Z90.710 Acquired absence of both cervix and uterus; Z79.899 Other long term (current) drug therapy; Z79.82 Long term (current) use of aspirin; Z88.2 Allergy status to sulfonamides; Z88.1 Allergy status to other antibiotic agents
CPT/HCPCS: 82948; 96372; 99283; J1885

== ENCOUNTER 2024-04-19 22:39 | Emergency (ER) | payer OTHER ==
[~2024-04-19] VITALS: Ht 152.4 cm; Wt 95.3 kg
[~2024-04-19 22:39] MED LIST changes: -ACET-10509 PO; +ACET-503 PO; -ACET-5636 PO; +ACET500T99 PO; +CARV12.5 PO; -EMLAC TP; +EZET10TA84 PO; -HYDR-4004 PO; +HYDR-5071 PO; -HYDR-5191 PO; +HYDR-5856 PO; +HYDR25TA32 PO; -LOSA50TA57 PO; -NAPR-1704 PO; +NAPR-337 PO; -NAPR-54 PO; +OLME20TA75 PO
[2024-04-19 22:48] VITALS: BP 95/50; PULSE 59; RESP 16; TEMP 97.6; O2SAT 95
[2024-04-19] MEDS: ONDANSETRON 4 MG/2 ML VIAL IVP ONE (23:24)
[2024-04-19] MEDS: NACL 0.9% 1,000 ML IV ONE (23:24)
[2024-04-19 23:29] VITALS: BP 95/50; PULSE 59; RESP 16; TEMP 97.6; O2SAT 95
[2024-04-20] MEDS ORDERED: ONDA8TAB87 PO (01:19)
== END 2024-04-20 01:35 | disposition home or self-care (01) ==
LOC: MED 22:39
DX: R42 Dizziness and giddiness (principal); R11.0 Nausea; R61 Generalized hyperhidrosis; I10 Essential (primary) hypertension; Z90.710 Acquired absence of both cervix and uterus; Z98.890 Other specified postprocedural states; Z79.82 Long term (current) use of aspirin; Z79.899 Other long term (current) drug therapy; Z88.2 Allergy status to sulfonamides; Z88.1 Allergy status to other antibiotic agents
CPT/HCPCS: 82948; 96374; 99283; J2405; J7030